=== PATIENT | male | born 1955 | race Caucasian/White ===

== ENCOUNTER → 2017-11-07 | Outpatient (CLI) | payer OTHER ==
[~2017-11-07] MED LIST: GADOBUTROL 10 MMOL/10 ML VIAL IV ONE; LITE COAT ASPI325 MG PO; METOPROLOL TART25 MG PO
[2017-11-07 09:59] LABS: BLOOD UREA NITROGEN 11 mg/dL (7-26); BUN/CREATININE RATIO 14 (6-25); CREATININE, SERUM 0.76 mg/dL (0.72-1.25); EST GLOMERULAR FILTRATION RATE > 60 ML/MIN (60-)
--- NOTE | 2017-11-08 09:22 | Diagnostic Imaging Report ---
Exam: Neck MRI without IV contrast History: Right neck pain and swelling, previous right-sided carotid stent placed in 03/2017. Comparison studies: None. Technique: Precontrast sagittal and axial T1 and axial T2 FS sequences. Intravenous contrast: None. Findings: Exam is limited and was terminated early at the patient's request. Not all protocol pulse sequences were able to be obtained. Postcontrast imaging was also unable to be obtained. Airway: The vocal folds are abducted at the time of the exam. Motion artifact also limits evaluation of the larynx. The airway is otherwise patent. Masses: No discrete mass identified. Lymph nodes: No radiographically significant adenopathy. Vessels: Flow-voids of the carotid and vertebral arteries as well as the jugular veins are maintained. Glands: Submandibular: Normal in size and homogeneous. No masses . Parotid: Normal in size and homogeneous. No masses. Thyroid: Normal in size and homogeneous. No masses. Included paranasal sinuses: Mild nonspecific inflammatory mucosal thickening in the included maxillary sinuses with small nonspecific secretions in the left maxillary sinus. Temporal bones: No gross abnormalities. Skull base: No marrow abnormalities. Cervical spine: Mildly prominent anterior osteophyte complex at C3-C4 indents the prevertebral soft tissues. No significant canal stenosis. Multilevel uncovertebral facet arthrosis result in multilevel foraminal stenosis. The left C2-C3 facets are fused. IMPRESSION: 1. Limited exam which was terminated early at the patient's request. 2. No gross mass or other soft tissue neck abnormalities. 3. Small fluid/secretions in the left maxillary sinus could be correlated for sinusitis. Signed by: Dr. Mkia Smith M.D. on 11/08/2017 9:18 AM
== END ==
LOC: MRI 08:54
PROVIDERS: ATTEND Family Medicine
DX: R22.1 Localized swelling, mass and lump, neck (principal); R22.0 Localized swelling, mass and lump, head; R07.0 Pain in throat; Z87.891 Personal history of nicotine dependence
CPT/HCPCS: 36415; 70540; 82565; 84520; A9585

== ENCOUNTER → 2021-03-11 | Day surgery (SDC) | payer BC ==
[2021-02-22 09:47] LABS: BASOPHILS % 0.3 % (0.0-1.0); HEMATOCRIT 40.5 % (38.2-49.6); HEMOGLOBIN 12.7 g/dL (14.0-18.0); LYMPHOCYTES # (AUTO) 1.1 (1.0-3.2); MEAN CORPUSCULAR HGB CONC 31.4 g/dL (31-35); MEAN CORPUSCULAR VOLUME 86.2 fL (81-99); MONOCYTES # (AUTO) 0.7 (0.2-0.8); MONOCYTES % 21.9 % (4.4-11.3); NEUTROPHILS # (AUTO) 1.2 (2.1-6.9); NEUTROPHILS % 40.5 % (38.7-80.0); PLATELET COUNT 119 x10e3/uL (140-360); RED CELL DISTRIBUTION WIDTH 14.9 % (11.7-14.4)
[2021-02-22 10:05] LABS: ALANINE AMINOTRANSFERASE 29 IU/L (0-55); ALBUMIN 3.7 g/dL (3.5-5.0); ALBUMIN/GLOBULIN RATIO 0.9 (0.8-2.0); ALKALINE PHOSPHATASE 136 IU/L (40-150); ANION GAP 13.9 mmol/L (8-16); BLOOD UREA NITROGEN 8 mg/dL (7-26); BUN/CREATININE RATIO 10 (6-25); CALCIUM 8.5 mg/dL (8.4-10.2); CARBON DIOXIDE 25 mmol/L (22-29); CHLORIDE 105 mmol/L (98-107); CREATININE, SERUM 0.78 mg/dL (0.72-1.25); EST GLOMERULAR FILTRATION RATE > 60 ML/MIN (60-); GLUCOSE 90 mg/dL (74-118); POTASSIUM 3.9 mmol/L (3.5-5.1); SODIUM 140 mmol/L (136-145)
[2021-02-22 11:05] LABS: HYPOCHROMASIA SLIGHT; LYMPHOCYTES % (MANUAL) 39 % (19-48); MONOCYTES % (MANUAL) 19 % (3.4-9.0); NEUTROPHILS % (MANUAL) 42 % (40-74); PLATELET ESTIMATE MODERATELY DECREASED; POLYCHROMASIA FEW; RBC MORPHOLOGY COMMENT NORMAL
[~2021-03-11] MED LIST changes: +ASPIRIN81 MG PO; +ATORVASTATIN CA20 MG PO; +BUPIVACAINE 0.25% 30ML SDV ONE; +CLOPIDOGREL75 MG PO; +FUROSEMIDE40 MG PO; -GADOBUTROL 10 MMOL/10 ML VIAL IV ONE; +NITROGLYCERIN6.5 MG PO
[2021-03-11 11:45] VITALS: BP 174/81
== END | disposition home or self-care (01) ==
LOC: DX 02-22 11:12 → OR 06:15 → EDSTATUS 11:30
PROVIDERS: ATTEND Surgery
DX: K80.10 Calculus of gallbladder with chronic cholecystitis without obstruction (principal); K82.8 Other specified diseases of gallbladder; U07.1 COVID-19; M19.90 Unspecified osteoarthritis, unspecified site; J44.9 Chronic obstructive pulmonary disease, unspecified; I25.810 Atherosclerosis of coronary artery bypass graft(s) without angina pectoris; I25.2 Old myocardial infarction; I10 Essential (primary) hypertension; E78.5 Hyperlipidemia, unspecified; K44.9 Diaphragmatic hernia without obstruction or gangrene; Z88.6 Allergy status to analgesic agent; Z91.041 Radiographic dye allergy status; Z01.810 Encounter for preprocedural cardiovascular examination; Z01.812 Encounter for preprocedural laboratory examination; Z01.818 Encounter for other preprocedural examination; Z20.822 Contact with and (suspected) exposure to COVID-19; Z79.02 Long term (current) use of antithrombotics/antiplatelets; Z79.82 Long term (current) use of aspirin; Z95.1 Presence of aortocoronary bypass graft; Z86.16 Personal history of COVID-19; Z87.891 Personal history of nicotine dependence
CPT/HCPCS: 36415; 47562; 71046; 80053; 85025; 88304; 93005; C1766; U0002